=== PATIENT | male | born 1995 | race African-American/Black ===

== ENCOUNTER 2021-02-13 23:15 | Inpatient (IN) | payer MEDICARE, MEDICAID ==
--- NOTE | 2021-02-13 23:24 | EDM.PDOC ---
<Juan A Encarnacion - Last Filed: 02/14/21 01:13> ED HPI GENERAL MEDICAL PROBLEM - General Chief Complaint: Abdominal Pain Stated Complaint: MEDICAL VIA [place] Time Seen by Provider: 02/13/21 23:16 Source of Information: Reports: Patient, EMS History Limitations: Reports: No Limitations - History of Present Illness INITIAL COMMENTS - FREE TEXT/NARRATIVE: Ibrahima is a 26-year-old male presenting to the ED via [facility] for evaluation of worsening right lower quadrant abdominal pain, nausea and vomiting, diminished appetite, and now left-sided low back pain. Patient states that his symptoms started about 5 days ago. He denies any fever or chills. The pain is worse with movement. He states he has not had much to eat over the last several days. The pain is been continuing to increase in all radiates through to the back. Right Abdomen Pain Score (Numeric/FACES): 6 - Related Data Allergies Allergy/AdvReac Type Severity Reaction Status Date / Time No Known Allergies Allergy Verified 02/13/21 23:38 Home Meds: Home Meds Aspirin [Ivett Chewable] 81 mg PO DAILY 02/13/21 [History] ED ROS GENERAL - Review of Systems Review Of Systems: See Below Constitutional: Reports: Decreased Appetite HEENT: Reports: No Symptoms Respiratory: Reports: No Symptoms Cardiovascular: Reports: No Symptoms Endocrine: Reports: No Symptoms GI/Abdominal: Reports: Abdominal Pain (Right lower quadrant pain), Decreased Appetite, Nausea, Vomiting. Denies: Constipation, Diarrhea : Reports: No Symptoms Musculoskeletal: Reports: Back Pain (Right lower back pain) Skin: Reports: No Symptoms Neurological: Reports: No Symptoms Psychiatric: Reports: No Symptoms Hematologic/Lymphatic: Reports: No Symptoms Immunologic: Reports: No Symptoms ED EXAM, GI/ABD - Physical Exam Exam: See Below Exam Limited By: No Limitations General Appearance: Alert, Anxious, Mild Distress Eyes: Bilateral: EOMI Throat/Mouth: Normal Inspection, Normal Oropharynx, Normal Voice, No Airway Compromise Head: Atraumatic, Normocephalic Neck: Normal Inspection, Supple. No: Lymphadenopathy (R), Lymphadenopathy (L) Respiratory/Chest: No Respiratory Distress, Lungs Clear, Normal Breath Sounds, No Accessory Muscle Use. No: Crackles, Rales, Rhonchi, Wheezing Cardiovascular: Normal Peripheral Pulses, Regular Rate, Rhythm, No Murmur GI/Abdominal Exam: Soft, Guarding, Rebound, Tender (Right lower quadrant abdominal pain), Abnormal Bowel Sounds (Diminished bowel sounds) Back Exam: Normal Inspection Extremities: Normal Inspection, Normal Range of Motion, No Pedal Edema, Normal Capillary Refill Neurological: Alert, Oriented, Normal Cognition, No Motor/Sensory Deficits Psychiatric: Normal Affect, Normal Mood Skin Exam: Warm, Dry Course - Radiology Interpretation Free Text/Narrative:: I reviewed the images of the CT of the abdomen and pelvis without contrast as well as the report. The report is as follows: FINDINGS: Lower chest: Unremarkable. Liver: Diffusely decreased attenuation of the liver is compatible with significant fatty infiltration. Within this limitation, no focal lesions. Gallbladder and bile ducts: Distended gallbladder. No radiopaque stones or gallbladder wall thickening. Pancreas: Unremarkable. No mass or inflammation. Spleen: Unremarkable. Splenule in the hilum. Adrenal glands: Unremarkable. No nodules. Kidneys: Excreted contrast in the renal calices from prior contrast administration. No hydronephrosis. GI tract: Unremarkable. Normal in caliber. No sign of mass or inflammation. Normal appendix. Vasculature: Unremarkable. Mesenteric arteries are patent. Lymph nodes: No lymphadenopathy. Omentum/Peritoneum/Abdominal Wall: Unremarkable. No sign of mass or infiltration. No free air or significant free fluid. Pelvis: Unremarkable. Bones: Unremarkable for age. IMPRESSION: No significant CT abnormality or findings to explain the cause of the patient`s symptoms. Please note that all CT scans at this facility use dose modulation, iterative reconstruction, and/or weight-based dosing when appropriate to reduce radiation dose to as low as reasonably achievable. - Re-Assessments/Exams Free Text/Narrative Re-Assessment/Exam: 02/14/21 00:31 I reviewed the patient's labs showing a leukocyte count of 9.3 with a normal differential, hemoglobin of 17.6 and a platelet count of 290,000. The patient has a comprehensive metabolic panel significant for sodium 132, potassium 4.1, chloride 93, bicarbonate 26, BUN of 13 with a creatinine 1.1 and a glucose of 327. I did add on a serum ketone and venous blood gas to assess for possible DKA. The patient has significant elevation of his AST at 216, ALT at 335 and alkaline phosphatase at 132. The C-reactive protein is mildly elevated 0.58 and lipase is normal at 126. Patient is negative for Covid, RSV, and influenza. The CT of the abdomen pelvis with contrast had to be aborted because the patient reacted to the IV contrast and started to vomit repeatedly. After his nausea was improved we did a noncontrast CT of the abdomen pelvis which failed to demonstrate any focal abnormalities despite the patient having what appears to be an acute abdomen on exam. 02/14/21 01:13 the patient is ketone positive and his serum and his venous blood gas shows a pH of 7.37, PCO2 venous of 42.6, PO2 venous of 33.0, and a bicar bonate of 24.1. We initiated insulin therapy with 10 units of regular insulin IV. I also initiated the general medicine order set for diabetic ketoacidosis and IV glucose management. I discussed the case with Dr. Lerner as there is no order to send the patient and he will see the patient in the daytime when there are some discharges and beds available. In the meantime, we will continue to manage the patient in the ED with IV hydration, oral hydration, regular labs and glucose management. Departure - Departure Disposition: Admitted As Inpatient 65 Clinical Impression: New onset type 2 diabetes mellitus Diabetic ketoacidosis Qualifiers: Diabetes mellitus type: type 2 Diabetes mellitus complication detail: without coma Qualified Code(s): E11.10 - Type 2 diabetes mellitus with ketoacidosis without coma - Discharge Information Referrals: PCP,None [Primary Care Provider] - Forms: ED Department Discharge <OfficerJim - Last Filed: 02/14/21 08:48> Course - Vital Signs Last Recorded V/S: Last Vital Signs Temp 98.1 F 02/13/21 23:23 Pulse 75 02/14/21 06:00 Resp 16 02/14/21 06:00 BP 122/67 02/14/21 06:00 Pulse Ox 96 02/14/21 06:00 - Orders/Labs/Meds Orders: Active Orders 24 hr Category Date Time Status Diabetes Education [RC] Click to Edit Care 02/14/21 00:51 Active Notify Provider [RC] PRN Care 02/14/21 01:07 Active Vital Signs [RC] Q1H Care 02/14/21 00:51 Active BASIC METABOLIC PANEL,BMP [CHEM] Q4H Lab 02/14/21 09:00 Ordered BASIC METABOLIC PANEL,BMP [CHEM] Q4H Lab 02/14/21 13:00 Ordered BASIC METABOLIC PANEL,BMP [CHEM] Q4H Lab 02/14/21 17:00 Ordered BASIC METABOLIC PANEL,BMP [CHEM] Q4H Lab 02/14/21 21:00 Ordered MAGNESIUM [CHEM] Q6 Lab 02/14/21 13:00 Ordered MAGNESIUM [CHEM] Q6H Lab 02/14/21 19:00 Ordered PHOSPHORUS [CHEM] Q6H Lab 02/14/21 13:00 Ordered PHOSPHORUS [CHEM] Q6H Lab 02/14/21 19:00 Ordered POTASSIUM,K [CHEM] Q2H Lab 02/14/21 11:00 Ordered POTASSIUM,K [CHEM] Q2H Lab 02/14/21 15:00 Ordered POTASSIUM,K [CHEM] Q2H Lab 02/14/21 19:00 Ordered POTASSIUM,K [CHEM] Q2H Lab 02/14/21 23:00 Ordered Dextrose 50% in Water Med 02/14/21 00:49 Active 50 ml IVPUSH ASDIRECTED PRN Dextrose 50% in Water Med 02/14/21 00:51 Active 50 ml IVPUSH ONETIME PRN Glucagon,Human Recombinant [GlucaGen] Med 02/14/21 00:49 Active 1 mg IM ASDIRECTED PRN Insulin Regular in 0.9 % NACL [Myxredlin in NS 100 UNIT Med 02/14/21 01:15 Active /100 ML] 100 ml IV ASDIRECTED Sodium Chloride 0.9% [Normal Saline] 1,000 ml Med 02/14/21 01:00 Active IV ASDIRECTED Sodium Chloride 0.9% [Normal Saline] 1,000 ml Med 02/14/21 03:15 Active IV ASDIRECTED Isolation [COMM] Stat Ot 02/13/21 23:17 Ordered Medication Orders Dextrose/Water (50% Dextrose In Water 50 Ml Syringe) 50 ml IVPUSH ASDIRECTED PRN PRN Reason: Hypoglycemia Dextrose/Water (50% Dextrose In Water 50 Ml Syringe) 50 ml IVPUSH ONETIME PRN PRN Reason: Blood Glucose Glucagon (Glucagon,Human Recombinant 1 Mg Vial) 1 mg IM ASDIRECTED PRN PRN Reason: Hypoglycemia Sodium Chloride (Normal Saline) 1,000 mls @ 999 mls/hr IV ASDIRECTED MARNI Last Admin: 02/14/21 01:30 Dose: 999 mls/hr Documented by: SCOTTIE Insulin Regular in 0.9 % NACL (Myxredlin In Ns 100 Unit/100 Ml) 100 mls @ 9.979 mls/hr IV ASDIRECTED MARNI; Protocol Last Admin: 02/14/21 07:06 Dose: 0.03 units/kg/hr, 3 mls/hr Documented by: MADI Cosigned by: RICH Infusion: 02/14/21 07:06 Dose: 0.04 units/kg/hr, 4 mls/hr Documented by: MADI Cosigned by: RICH Infusion: 02/14/21 05:08 Dose: 0.04 units/kg/hr, 4 mls/hr Documented by: SCOTTIE Cosigned by: BOLIVAR Admin: 02/14/21 03:18 Dose: 0.07 units/kg/hr, 7 mls/hr Documented by: SCOTTIE Cosigned by: BOLIVAR Sodium Chloride (Normal Saline) 1,000 mls @ 250 mls/hr IV ASDIRECTED MARNI Last Admin: 02/14/21 07:22 Dose: 250 mls/hr Documented by: Infusion: 02/14/21 07:20 Dose: 250 mls/hr Documented by: Admin: 02/14/21 03:20 Dose: 250 mls/hr Documented by: SCOTTIE Labs: Laboratory Tests 02/13/21 02/13/21 02/13/21 Range/Units 23:26 23:26 23:26 WBC 9.3 (4.5-11.0) K/uL RBC 5.97 H (4.30-5.90) M/uL Hgb 17.6 H (12.0-15.0) g/dL Hct 46.9 (40.0-54.0) % MCV 79 L (80-98) fL MCH 30 (27-31) pg MCHC 38 H (32-36) % Plt Count 290 (150-400) K/uL Neut % (Auto) 60.1 (36-66) % Lymph % (Auto) 26.5 (24-44) % [place] % (Auto) 9.7 H (2-6) % Eos % (Auto) 2.8 (2-4) % Baso % (Auto) 0.9 (0-1) % ABG Hemoglobin (13.5-18.0) g/dL ABG Oxyhemoglobin % ABG Carboxyhemoglobin (0.0-1.6) % ABG Methemoglobin % VBG pH (7.350-7.450) VBG pCO2 mm/Hg VBG pO2 mm/Hg VBG HCO3 mmol/L VBG Total CO2 mmol/L VBG O2 Saturation VBG O2 Content %vol VBG Base Excess mm/L O2 Delivery Device Sodium 132 L (140-148) mmol/L Potassium 4.1 (3.6-5.2) mmol/L Chloride 93 L (100-108) mmol/L Carbon Dioxide 24 (21-32) mmol/L Anion Gap 19.1 H (5.0-14.0) mmol/L BUN 13 (7-18) mg/dL Creatinine 1.1 (0.8-1.3) mg/dL Est Cr Clr Drug Dosing 114.00 mL/min Estimated GFR (MDRD) > 60 (>60) Glucose 327 H (74-106) mg/dL POC Glucose (74-106) mg/dL Lactic Acid 1.1 (0.4-2.0) mmol/L Calcium 9.8 (8.5-10.1) mg/dL Phosphorus (2.5-4.9) mg/dL Magnesium (1.8-2.4) mg/dL Total Bilirubin 2.0 H (0.2-1.0) mg/dL AST 216 H (15-37) U/L ALT 335 H (12-78) U/L Alkaline Phosphatase 132 H (46-116) U/L C-Reactive Protein 0.58 H (0.0-0.3) mg/dL Total Protein 8.0 (6.4-8.2) g/dL Albumin 4.5 (3.4-5.0) g/dL Globulin 3.5 (2.3-3.5) g/dL Albumin/Globulin Ratio 1.3 (1.2-2.2) Lipase 126 (73-393) U/L Urine Color (YELLOW) Urine Appearance (CLEAR) Urine pH (5.0-8.0) Ur Specific [place] (1.008-1.030) Urine Protein (NEGATIVE) mg/dL Urine Glucose (UA) (NEGATIVE) mg/dL Urine Ketones (NEGATIVE) mg/dL Urine Occult Blood (NEGATIVE) Urine Nitrite (NEGATIVE) Urine Bilirubin (NEGATIVE) Urine Urobilinogen (0.2-1.0) EU/dL Ur Leukocyte Esterase (NEGATIVE) Urine RBC (0-5) Urine WBC (0-5) Ur Epithelial Cells Amorphous Sediment Urine Bacteria Urine Mucus Urine Other Ketones (NEGATIVE) Influenza Type A RNA (NEGATIVE) RSV RNA (INAAT) (NEGATIVE) Influenza Type B RNA (NEGATIVE) SARS-CoV-2 RNA (BREE) (NEGATIVE) 02/13/21 02/14/21 02/14/21 Range/Units 23:31 00:31 00:38 WBC (4.5-11.0) K/uL RBC (4.30-5.90) M/uL Hgb (12.0-15.0) g/dL Hct (40.0-54.0) % MCV (80-98) fL MCH (27-31) pg MCHC (32-36) % Plt Count (150-400) K/uL Neut % (Auto) (36-66) % Lymph % (Auto) (24-44) % [place] % (Auto) (2-6) % Eos % (Auto) (2-4) % Baso % (Auto) (0-1) % ABG Hemoglobin 17.4 (13.5-18.0) g/dL ABG Oxyhemoglobin 62.2 % ABG Carboxyhemoglobin 3.5 H (0.0-1.6) % ABG Methemoglobin 1.1 % VBG pH 7.372 (7.350-7.450) VBG pCO2 42.6 mm/Hg VBG pO2 33.0 mm/Hg VBG HCO3 24.1 mmol/L VBG Total CO2 20.7 mmol/L VBG O2 Saturation 65.2 VBG O2 Content 15.2 %vol VBG Base Excess -0.8 mm/L O2 Delivery Device Room air Sodium (140-148) mmol/L Potassium (3.6-5.2) mmol/L Chloride (100-108) mmol/L Carbon Dioxide (21-32) mmol/L Anion Gap (5.0-14.0) mmol/L BUN (7-18) mg/dL Creatinine (0.8-1.3) mg/dL Est Cr Clr Drug Dosing mL/min Estimated GFR (MDRD) (>60) Glucose (74-106) mg/dL POC Glucose (74-106) mg/dL Lactic Acid (0.4-2.0) mmol/L Calcium (8.5-10.1) mg/dL Phosphorus (2.5-4.9) mg/dL Magnesium (1.8-2.4) mg/dL Total Bilirubin (0.2-1.0) mg/dL AST (15-37) U/L ALT (12-78) U/L Alkaline Phosphatase (46-116) U/L C-Reactive Protein (0.0-0.3) mg/dL Total Protein (6.4-8.2) g/dL Albumin (3.4-5.0) g/dL Globulin (2.3-3.5) g/dL Albumin/Globulin Ratio (1.2-2.2) Lipase (73-393) U/L Urine Color [place] A (YELLOW) Urine Appearance Slightly cloudy A (CLEAR) Urine pH 5.5 (5.0-8.0) Ur Specific [place] >= 1.030 (1.008-1.030) Urine Protein >=300 H (NEGATIVE) mg/dL Urine Glucose (UA) 500 H (NEGATIVE) mg/dL Urine Ketones 40 H (NEGATIVE) mg/dL Urine Occult Blood Trace-intact H (NEGATIVE) Urine Nitrite Negative (NEGATIVE) Urine Bilirubin Moderate H (NEGATIVE) Urine Urobilinogen 0.2 (0.2-1.0) EU/dL Ur Leukocyte Esterase Negative (NEGATIVE) Urine RBC 0-5 (0-5) Urine WBC 0-5 (0-5) Ur Epithelial Cells Few Amorphous Sediment Moderate Urine Bacteria Few Urine Mucus Few Urine Other Ketones (NEGATIVE) Influenza Type A RNA Negative (NEGATIVE) RSV RNA (INAAT) Negative (NEGATIVE) Influenza Type B RNA Negative (NEGATIVE) SARS-CoV-2 RNA (BREE) Negative (NEGATIVE) 02/14/21 02/14/21 02/14/21 Range/Units 00:38 00:40 01:57 WBC (4.5-11.0) K/uL RBC (4.30-5.90) M/uL Hgb (12.0-15.0) g/dL Hct (40.0-54.0) % MCV (80-98) fL MCH (27-31) pg MCHC (32-36) % Plt Count (150-400) K/uL Neut % (Auto) (36-66) % Lymph % (Auto) (24-44) % [place] % (Auto) (2-6) % Eos % (Auto) (2-4) % Baso % (Auto) (0-1) % ABG Hemoglobin (13.5-18.0) g/dL ABG Oxyhemoglobin % ABG Carboxyhemoglobin (0.0-1.6) % ABG Methemoglobin % VBG pH (7.350-7.450) VBG pCO2 mm/Hg VBG pO2 mm/Hg VBG HCO3 mmol/L VBG Total CO2 mmol/L VBG O2 Saturation VBG O2 Content %vol VBG Base Excess mm/L O2 Delivery Device Sodium 130 L (140-148) mmol/L Potassium 4.4 (3.6-5.2) mmol/L Chloride 92 L (100-108) mmol/L Carbon Dioxide 25 (21-32) mmol/L Anion Gap 17.4 H (5.0-14.0) mmol/L BUN 12 (7-18) mg/dL Creatinine 1.1 (0.8-1.3) mg/dL Est Cr Clr Drug Dosing 114.00 mL/min Estimated GFR (MDRD) > 60 (>60) Glucose 333 H (74-106) mg/dL POC Glucose 320 H (74-106) mg/dL Lactic Acid (0.4-2.0) mmol/L Calcium 9.3 (8.5-10.1) mg/dL Phosphorus 4.6 (2.5-4.9) mg/dL Magnesium 1.9 (1.8-2.4) mg/dL Total Bilirubin (0.2-1.0) mg/dL AST (15-37) U/L ALT (12-78) U/L Alkaline Phosphatase (46-116) U/L C-Reactive Protein (0.0-0.3) mg/dL Total Protein (6.4-8.2) g/dL Albumin (3.4-5.0) g/dL Globulin (2.3-3.5) g/dL Albumin/Globulin Ratio (1.2-2.2) Lipase (73-393) U/L Urine Color (YELLOW) Urine Appearance (CLEAR) Urine pH (5.0-8.0) Ur Specific [place] (1.008-1.030) Urine Protein (NEGATIVE) mg/dL Urine Glucose (UA) (NEGATIVE) mg/dL Urine Ketones (NEGATIVE) mg/dL Urine Occult Blood (NEGATIVE) Urine Nitrite (NEGATIVE) Urine Bilirubin (NEGATIVE) Urine Urobilinogen (0.2-1.0) EU/dL Ur Leukocyte Esterase (NEGATIVE) Urine RBC (0-5) Urine WBC (0-5) Ur Epithelial Cells Amorphous Sediment Urine Bacteria Urine Mucus Urine Other Ketones Small H (NEGATIVE) Influenza Type A RNA (NEGATIVE) RSV RNA (INAAT) (NEGATIVE) Influenza Type B RNA (NEGATIVE) SARS-CoV-2 RNA (BREE) (NEGATIVE) 02/14/21 02/14/21 02/14/21 Range/Units 02:58 03:01 04:00 WBC (4.5-11.0) K/uL RBC (4.30-5.90) M/uL Hgb (12.0-15.0) g/dL Hct (40.0-54.0) % MCV (80-98) fL MCH (27-31) pg MCHC (32-36) % Plt Count (150-400) K/uL Neut % (Auto) (36-66) % Lymph % (Auto) (24-44) % [place] % (Auto) (2-6) % Eos % (Auto) (2-4) % Baso % (Auto) (0-1) % ABG Hemoglobin (13.5-18.0) g/dL ABG Oxyhemoglobin % ABG Carboxyhemoglobin (0.0-1.6) % ABG Methemoglobin % VBG pH (7.350-7.450) VBG pCO2 mm/Hg VBG pO2 mm/Hg VBG HCO3 mmol/L VBG Total CO2 mmol/L VBG O2 Saturation VBG O2 Content %vol VBG Base Excess mm/L O2 Delivery Device Sodium (140-148) mmol/L Potassium 3.8 (3.6-5.2) mmol/L Chloride (100-108) mmol/L Carbon Dioxide (21-32) mmol/L Anion Gap (5.0-14.0) mmol/L BUN (7-18) mg/dL Creatinine (0.8-1.3) mg/dL Est Cr Clr Drug Dosing mL/min Estimated GFR (MDRD) (>60) Glucose (74-106) mg/dL POC Glucose 325 H 320 H (74-106) mg/dL Lactic Acid (0.4-2.0) mmol/L Calcium (8.5-10.1) mg/dL Phosphorus (2.5-4.9) mg/dL Magnesium (1.8-2.4) mg/dL Total Bilirubin (0.2-1.0) mg/dL AST (15-37) U/L ALT (12-78) U/L Alkaline Phosphatase (46-116) U/L C-Reactive Protein (0.0-0.3) mg/dL Total Protein (6.4-8.2) g/dL Albumin (3.4-5.0) g/dL Globulin (2.3-3.5) g/dL Albumin/Globulin Ratio (1.2-2.2) Lipase (73-393) U/L Urine Color (YELLOW) Urine Appearance (CLEAR) Urine pH (5.0-8.0) Ur Specific [place] (1.008-1.030) Urine Protein (NEGATIVE) mg/dL Urine Glucose (UA) (NEGATIVE) mg/dL Urine Ketones (NEGATIVE) mg/dL Urine Occult Blood (NEGATIVE) Urine Nitrite (NEGATIVE) Urine Bilirubin (NEGATIVE) Urine Urobilinogen (0.2-1.0) EU/dL Ur Leukocyte Esterase (NEGATIVE) Urine RBC (0-5) Urine WBC (0-5) Ur Epithelial Cells Amorphous Sediment Urine Bacteria Urine Mucus Urine Other Ketones (NEGATIVE) Influenza Type A RNA (NEGATIVE) RSV RNA (INAAT) (NEGATIVE) Influenza Type B RNA (NEGATIVE) SARS-CoV-2 RNA (BREE) (NEGATIVE) 02/14/21 02/14/21 02/14/21 Range/Units 05:08 05:10 06:11 WBC (4.5-11.0) K/uL RBC (4.30-5.90) M/uL Hgb (12.0-15.0) g/dL Hct (40.0-54.0) % MCV (80-98) fL MCH (27-31) pg MCHC (32-36) % Plt Count (150-400) K/uL Neut % (Auto) (36-66) % Lymph % (Auto) (24-44) % [place] % (Auto) (2-6) % Eos % (Auto) (2-4) % Baso % (Auto) (0-1) % ABG Hemoglobin (13.5-18.0) g/dL ABG Oxyhemoglobin % ABG Carboxyhemoglobin (0.0-1.6) % ABG Methemoglobin % VBG pH (7.350-7.450) VBG pCO2 mm/Hg VBG pO2 mm/Hg VBG HCO3 mmol/L VBG Total CO2 mmol/L VBG O2 Saturation VBG O2 Content %vol VBG Base Excess mm/L O2 Delivery Device Sodium 136 L (140-148) mmol/L Potassium 3.9 (3.6-5.2) mmol/L Chloride 98 L (100-108) mmol/L Carbon Dioxide 26 (21-32) mmol/L Anion Gap 15.9 H (5.0-14.0) mmol/L BUN 12 (7-18) mg/dL Creatinine 1.0 (0.8-1.3) mg/dL Est Cr Clr Drug Dosing 125.40 mL/min Estimated GFR (MDRD) > 60 (>60) Glucose 249 H (74-106) mg/dL POC Glucose 239 H 232 H (74-106) mg/dL Lactic Acid (0.4-2.0) mmol/L Calcium 8.9 (8.5-10.1) mg/dL Phosphorus (2.5-4.9) mg/dL Magnesium (1.8-2.4) mg/dL Total Bilirubin (0.2-1.0) mg/dL AST (15-37) U/L ALT (12-78) U/L Alkaline Phosphatase (46-116) U/L C-Reactive Protein (0.0-0.3) mg/dL Total Protein (6.4-8.2) g/dL Albumin (3.4-5.0) g/dL Globulin (2.3-3.5) g/dL Albumin/Globulin Ratio (1.2-2.2) Lipase (73-393) U/L Urine Color (YELLOW) Urine Appearance (CLEAR) Urine pH (5.0-8.0) Ur Specific [place] (1.008-1.030) Urine Protein (NEGATIVE) mg/dL Urine Glucose (UA) (NEGATIVE) mg/dL Urine Ketones (NEGATIVE) mg/dL Urine Occult Blood (NEGATIVE) Urine Nitrite (NEGATIVE) Urine Bilirubin (NEGATIVE) Urine Urobilinogen (0.2-1.0) EU/dL Ur Leukocyte Esterase (NEGATIVE) Urine RBC (0-5) Urine WBC (0-5) Ur Epithelial Cells Amorphous Sediment Urine Bacteria Urine Mucus Urine Other Ketones (NEGATIVE) Influenza Type A RNA (NEGATIVE) RSV RNA (INAAT) (NEGATIVE) Influenza Type B RNA (NEGATIVE) SARS-CoV-2 RNA (BREE) (NEGATIVE) 02/14/21 02/14/21 02/14/21 Range/Units 07:01 07:05 07:58 WBC (4.5-11.0) K/uL RBC (4.30-5.90) M/uL Hgb (12.0-15.0) g/dL Hct (40.0-54.0) % MCV (80-98) fL MCH (27-31) pg MCHC (32-36) % Plt Count (150-400) K/uL Neut % (Auto) (36-66) % Lymph % (Auto) (24-44) % [place] % (Auto) (2-6) % Eos % (Auto) (2-4) % Baso % (Auto) (0-1) % ABG Hemoglobin (13.5-18.0) g/dL ABG Oxyhemoglobin % ABG Carboxyhemoglobin (0.0-1.6) % ABG Methemoglobin % VBG pH (7.350-7.450) VBG pCO2 mm/Hg VBG pO2 mm/Hg VBG HCO3 mmol/L VBG Total CO2 mmol/L VBG O2 Saturation VBG O2 Content %vol VBG Base Excess mm/L O2 Delivery Device Sodium (140-148) mmol/L Potassium 3.9 (3.6-5.2) mmol/L Chloride (100-108) mmol/L Carbon Dioxide (21-32) mmol/L Anion Gap (5.0-14.0) mmol/L BUN (7-18) mg/dL Creatinine (0.8-1.3) mg/dL Est Cr Clr Drug Dosing mL/min Estimated GFR (MDRD) (>60) Glucose (74-106) mg/dL POC Glucose 198 H 205 H (74-106) mg/dL Lactic Acid (0.4-2.0) mmol/L Calcium (8.5-10.1) mg/dL Phosphorus 3.9 (2.5-4.9) mg/dL Magnesium 2.1 (1.8-2.4) mg/dL Total Bilirubin (0.2-1.0) mg/dL AST (15-37) U/L ALT (12-78) U/L Alkaline Phosphatase (46-116) U/L C-Reactive Protein (0.0-0.3) mg/dL Total Protein (6.4-8.2) g/dL Albumin (3.4-5.0) g/dL Globulin (2.3-3.5) g/dL Albumin/Globulin Ratio (1.2-2.2) Lipase (73-393) U/L Urine Color (YELLOW) Urine Appearance (CLEAR) Urine pH (5.0-8.0) Ur Specific [place] (1.008-1.030) Urine Protein (NEGATIVE) mg/dL Urine Glucose (UA) (NEGATIVE) mg/dL Urine Ketones (NEGATIVE) mg/dL Urine Occult Blood (NEGATIVE) Urine Nitrite (NEGATIVE) Urine Bilirubin (NEGATIVE) Urine Urobilinogen (0.2-1.0) EU/dL Ur Leukocyte Esterase (NEGATIVE) Urine RBC (0-5) Urine WBC (0-5) Ur Epithelial Cells Amorphous Sediment Urine Bacteria Urine Mucus Urine Other Ketones (NEGATIVE) Influenza Type A RNA (NEGATIVE) RSV RNA (INAAT) (NEGATIVE) Influenza Type B RNA (NEGATIVE) SARS-CoV-2 RNA (BREE) (NEGATIVE) Meds: Medications Generic Name Dose Route Start Last Admin Trade Name Freq PRN Reason Stop Dose Admin Dextrose/Water 50 ml 02/14/21 00:49 50% Dextrose In Water 50 Ml Syringe IVPUSH ASDIRECTED PRN Hypoglycemia Dextrose/Water 50 ml 02/14/21 00:51 50% Dextrose In Water 50 Ml Syringe IVPUSH ONETIME PRN Blood Glucose Glucagon 1 mg 02/14/21 00:49 Glucagon,Human Recombinant 1 Mg Vial IM ASDIRECTED PRN Hypoglycemia Sodium Chloride 1,000 mls @ 999 mls/hr 02/14/21 01:00 02/14/21 01:30 Normal Saline IV 999 mls/hr ASDIRECTED MARNI Administration Insulin Regular in 0.9 % NACL 100 mls @ 9.979 mls/hr 02/14/21 01:15 02/14/21 07:06 Myxredlin In Ns 100 Unit/100 Ml IV 0.03 units/kg/hr ASDIRECTED MARNI 3 mls/hr Administration Protocol 0.1 UNITS/KG/HR Sodium Chloride 1,000 mls @ 250 mls/hr 02/14/21 03:15 02/14/21 07:22 Normal Saline IV 250 mls/hr ASDIRECTED MARNI Administration Discontinued Medications Generic Name Dose Route Start Last Admin Trade Name Ellie PRN Reason Stop Dose Admin Sodium Chloride 85 mls @ 4 mls/sec 02/13/21 23:39 02/13/21 23:47 Normal Saline IV 02/13/21 23:40 4 mls/sec ASDIRECTED STA Administration Insulin Human Regular 10 unit 02/14/21 00:49 02/14/21 01:01 Insulin Regular, Human 100 Units/Ml 3 Ml Vial IVPUSH 02/14/21 00:50 10 unit ONETIME ONE Administration Iopamidol 150 ml 02/13/21 23:39 02/13/21 23:47 Iopamidol 612 Mg/Ml 150 Ml Bottle IV 02/13/21 23:40 150 ml . DIRECTED STA Administration Metoclopramide HCl 10 mg 02/14/21 01:22 02/14/21 01:40 Metoclopramide 10 Mg/2 Ml Sdv IVPUSH 02/14/21 01:23 10 mg ONETIME ONE Administration - Re-Assessments/Exams Free Text/Narrative Re-Assessment/Exam: 02/14/21 08:47 Took over care this morning 7 AM discussed case hospitalist that 830 this morning he agreed to take over care will continue management for DKA plan is to do hospital admission this morning Departure - Departure Time of Disposition: 08:48 Sepsis Event Note (ED) - Focused Exam Vital Signs: Vital Signs Temp Pulse Resp BP Pulse Ox 02/14/21 06:00 75 16 122/67 96 02/14/21 05:00 79 16 113/70 02/14/21 04:00 83 16 103/64 02/14/21 03:20 79 16 117/58 L 97 02/14/21 02:49 79 16 132/69 97 02/14/21 01:49 83 133/91 H 02/14/21 01:19 79 16 135/86 97 02/14/21 00:49 68 16 127/71 98 02/13/21 23:23 98.1 F 91 16 139/84 95 - Assessment/Plan Plan: Assessment Acuity = acute Site and laterality = new onset DKA Etiology = unknown Manifestations = hyperglycemia Location of injury = Home Plan Admission by hospitalist service This note was dictated using [employer] voice recognition software please call with any questions on syntax or grammar.
[2021-02-13] MEDS ORDERED: Iopamidol 612 MG/ML 150 ML Bottle IV STA (23:39)
[2021-02-14 00:10] LABS: CORONAVIRUS COVID-19 NAA NEGATIVE (NEGATIVE)
--- NOTE | 2021-02-14 00:27 | CRLCT ---
For Patients: As a result of the Century Cures Act, medical imaging exams and procedure reports are released immediately into your electronic medical record. You may view this report before your referring provider. If you have questions, please contact your health care provider. INDICATION: Right lower quadrant pain for 5 days. TECHNIQUE: CT abdomen and pelvis acquired witH IV contrast. COMPARISON: None. FINDINGS: Lower chest: Unremarkable. Liver: Diffusely decreased attenuation of the liver is compatible with significant fatty infiltration. Within this limitation, no focal lesions. Gallbladder and bile ducts: Distended gallbladder. No radiopaque stones or gallbladder wall thickening. Pancreas: Unremarkable. No mass or inflammation. Spleen: Unremarkable. Splenule in the hilum. Adrenal glands: Unremarkable. No nodules. Kidneys: Excreted contrast in the renal calices from prior contrast administration. No hydronephrosis. GI tract: Unremarkable. Normal in caliber. No sign of mass or inflammation. Normal appendix. Vasculature: Unremarkable. Mesenteric arteries are patent. Lymph nodes: No lymphadenopathy. Omentum/Peritoneum/Abdominal Wall: Unremarkable. No sign of mass or infiltration. No free air or significant free fluid. Pelvis: Unremarkable. Bones: Unremarkable for age. IMPRESSION: No significant CT abnormality or findings to explain the cause of the patient`s symptoms. Please note that all CT scans at this facility use dose modulation, iterative reconstruction, and/or weight-based dosing when appropriate to reduce radiation dose to as low as reasonably achievable. Dictated by Juan Dickson MD @ 02/14/2021 12:26:17 AM (Electronically Signed) JASMINA
[2021-02-14] MEDS ORDERED: Insulin Regular, Human 100 Units/ML 3 ML Vial IVPUSH ONE (00:49)
[2021-02-14] MEDS ORDERED: Glucagon,Human Recombinant 1 MG Vial IM PRN ×2 (00:49→12:25)
[2021-02-14] MEDS ORDERED: 50% Dextrose in Water 50 ML Syringe IVPUSH PRN ×3 (00:49→12:25)
[2021-02-14] MEDS ORDERED: Sodium Chloride 0.9% 1,000 ML IV SCH (01:00)
[2021-02-14] MEDS ORDERED: Metoclopramide 10 MG/2 ML SDV IVPUSH ONE (01:22)
[2021-02-14] MEDS: Insulin Regular in 0.9 % NACL 100 ML IV SCH ×4 (03:18→11:02)
[2021-02-14] MEDS: Sodium Chloride 0.9% 1,000 ML IV SCH ×3 (03:20→11:32)
[2021-02-14] MEDS ORDERED: Acetaminophen 325 MG Tab PO ONE (10:16)
--- NOTE | 2021-02-14 12:26 | PCM.HP.2 ---
H&P History of Present Illness - General Date of Service: 02/14/21 Admit Problem/Dx: Admission Diagnosis/Problem Admission Diagnosis/Problem Ketoacidosis Source of Information: Patient, Provider, RN Notes Reviewed History Limitations: Reports: No Limitations - History of Present Illness Initial Comments - Free Text/Narative: Mr. Dye is a 26-year-old gentleman who was admitted through the emergency department with hyperglycemia, nausea, and abdominal pain, secondary to diabetic ketoacidosis. He has no prior history of diabetes mellitus and is unaware of his family history as he was adopted. He is noted symptoms of polydipsia and polyuria over the past 2 months. Over the past few days he had developed abdominal pain associated with nausea. He was evaluated in the emergency department and found to have ketoacidosis. No beds were available at this facility for admission or beds at other facilities for transfer so he was boarded in the emergency department. He was started on IV insulin per protocol as well as IV fluids and electrolyte management per ketoacidosis protocol. He has done well during his time in the emergency department, glucose levels are u nder better control and his ketoacidosis has resolved. He will be admitted for ongoing management of his uncontrolled diabetes, including initiation of insulin therapy and diabetes education. Right Abdomen Pain Score (Numeric/FACES): 6 - Related Data Allergies/Adverse Reactions: Allergies Allergy/AdvReac Type Severity Reaction Status Date / Time No Known Allergies Allergy Verified 02/13/21 23:38 Home Medications: Home Meds Aspirin [Ivett Chewable] 81 mg PO DAILY 02/13/21 [History] Past Medical History Cardiovascular History: Reports: Angina, High Cholesterol Musculoskeletal History: Reports: Fracture Psychiatric History: Reports: ADHD, Autism, Depression Other Psychiatric History: FAS - Infectious Disease History Infectious Disease History: Reports: Chicken Pox Social & Family History - Tobacco Use Tobacco Use Status *Q: Current Every Day Tobacco User Years of Tobacco use: 13 Packs/Tins Daily: 0.5 - Caffeine Use Caffeine Use: Reports: Energy Drinks - Recreational Drug Use Recreational Drug Use: Yes Drug Use in Last 12 Months: Yes Recreational Drug Type: Reports: Marijuana/Hashish Recreational Drug Use Frequency: Daily H&P Review of Systems - Review of Systems: Review Of Systems: See Below General: Reports: No Symptoms HEENT: Reports: No Symptoms Pulmonary: Reports: No Symptoms Cardiovascular: Reports: No Symptoms Gastrointestinal: Reports: No Symptoms Genitourinary: Reports: No Symptoms Musculoskeletal: Reports: No Symptoms Skin: Reports: No Symptoms Psychiatric: Reports: No Symptoms Neurological: Reports: No Symptoms Hematologic/Lymphatic: Reports: No Symptoms Immunologic: Reports: No Symptoms Exam - Exam Exam: See Below - Vital Signs Vital Signs: Last Vital Signs Temp 98.1 F 02/13/21 23:23 Pulse 70 02/14/21 11:38 Resp 16 02/14/21 06:00 BP 123/84 02/14/21 11:38 Pulse Ox 96 02/14/21 06:00 Weight: 220 lb - Exam General: Alert, Oriented, Cooperative, Mild Distress HEENT: Conjunctiva Clear, Hearing Intact, Mucosa Moist & [place], Normal Nasal Sep jyotsna, Posterior Pharynx Clear, Pupils Equal Neck: Supple, Trachea Midline, +2 Carotid Pulse wo Bruit Lungs: Clear to Auscultation, Normal Respiratory Effort Cardiovascular: Regular Rate, Regular Rhythm, Normal S1, Normal S2. No: Systolic Murmur, Diastolic Murmur GI/Abdominal Exam: Soft, Non-Tender, No Organomegaly, No Distention Back Exam: Normal Inspection, Full Range of Motion Extremities: Non-Tender, No Pedal Edema Skin: Warm, Dry, Intact Neurological: Cranial Nerves Intact, Strength Equal Bilateral, Normal Speech, Normal Tone, Sensation Intact. No: Focal Deficit Neuro Extensive - Mental Status: Alert, Oriented x3, Normal Mood/Affect, Normal Cognition, Memory Intact - Patient Data Lab Results Last 24 hrs: Laboratory Results - last 24 hr 02/13/21 02/13/21 02/13/21 Range/Units 23:26 23:26 23:26 WBC 9.3 (4.5-11.0) K/uL RBC 5.97 H (4.30-5.90) M/uL Hgb 17.6 H (12.0-15.0) g/dL Hct 46.9 (40.0-54.0) % MCV 79 L (80-98) fL MCH 30 (27-31) pg MCHC 38 H (32-36) % Plt Count 290 (150-400) K/uL Neut % (Auto) 60.1 (36-66) % Lymph % (Auto) 26.5 (24-44) % [place] % (Auto) 9.7 H (2-6) % Eos % (Auto) 2.8 (2-4) % Baso % (Auto) 0.9 (0-1) % ABG Hemoglobin (13.5-18.0) g/dL ABG Oxyhemoglobin % ABG Carboxyhemoglobin (0.0-1.6) % ABG Methemoglobin % VBG pH (7.350-7.450) VBG pCO2 mm/Hg VBG pO2 mm/Hg VBG HCO3 mmol/L VBG Total CO2 mmol/L VBG O2 Saturation VBG O2 Content %vol VBG Base Excess mm/L O2 Delivery Device Sodium 132 L (140-148) mmol/L Potassium 4.1 (3.6-5.2) mmol/L Chloride 93 L (100-108) mmol/L Carbon Dioxide 24 (21-32) mmol/L Anion Gap 19.1 H (5.0-14.0) mmol/L BUN 13 (7-18) mg/dL Creatinine 1.1 (0.8-1.3) mg/dL Est Cr Clr Drug Dosing 114.00 mL/min Estimated GFR (MDRD) > 60 (>60) Glucose 327 H (74-106) mg/dL POC Glucose (74-106) mg/dL Lactic Acid 1.1 (0.4-2.0) mmol/L Calcium 9.8 (8.5-10.1) mg/dL Phosphorus (2.5-4.9) mg/dL Magnesium (1.8-2.4) mg/dL Total Bilirubin 2.0 H (0.2-1.0) mg/dL AST 216 H (15-37) U/L ALT 335 H (12-78) U/L Alkaline Phosphatase 132 H (46-116) U/L C-Reactive Protein 0.58 H (0.0-0.3) mg/dL Total Protein 8.0 (6.4-8.2) g/dL Albumin 4.5 (3.4-5.0) g/dL Globulin 3.5 (2.3-3.5) g/dL Albumin/Globulin Ratio 1.3 (1.2-2.2) Lipase 126 (73-393) U/L Urine Color (YELLOW) Urine Appearance (CLEAR) Urine pH (5.0-8.0) Ur Specific [place] (1.008-1.030) Urine Protein (NEGATIVE) mg/dL Urine Glucose (UA) (NEGATIVE) mg/dL Urine Ketones (NEGATIVE) mg/dL Urine Occult Blood (NEGATIVE) Urine Nitrite (NEGATIVE) Urine Bilirubin (NEGATIVE) Urine Urobilinogen (0.2-1.0) EU/dL Ur Leukocyte Esterase (NEGATIVE) Urine RBC (0-5) Urine WBC (0-5) Ur Epithelial Cells Amorphous Sediment Urine Bacteria Urine Mucus Urine Other Ketones (NEGATIVE) Influenza Type A RNA (NEGATIVE) RSV RNA (INAAT) (NEGATIVE) Influenza Type B RNA (NEGATIVE) SARS-CoV-2 RNA (BREE) (NEGATIVE) 02/13/21 02/14/21 02/14/21 Range/Units 23:31 00:31 00:38 WBC (4.5-11.0) K/uL RBC (4.30-5.90) M/uL Hgb (12.0-15.0) g/dL Hct (40.0-54.0) % MCV (80-98) fL MCH (27-31) pg MCHC (32-36) % Plt Count (150-400) K/uL Neut % (Auto) (36-66) % Lymph % (Auto) (24-44) % [place] % (Auto) (2-6) % Eos % (Auto) (2-4) % Baso % (Auto) (0-1) % ABG Hemoglobin 17.4 (13.5-18.0) g/dL ABG Oxyhemoglobin 62.2 % ABG Carboxyhemoglobin 3.5 H (0.0-1.6) % ABG Methemoglobin 1.1 % VBG pH 7.372 (7.350-7.450) VBG pCO2 42.6 mm/Hg VBG pO2 33.0 mm/Hg VBG HCO3 24.1 mmol/L VBG Total CO2 20.7 mmol/L VBG O2 Saturation 65.2 VBG O2 Content 15.2 %vol VBG Base Excess -0.8 mm/L O2 Delivery Device Room air Sodium (140-148) mmol/L Potassium (3.6-5.2) mmol/L Chloride (100-108) mmol/L Carbon Dioxide (21-32) mmol/L Anion Gap (5.0-14.0) mmol/L BUN (7-18) mg/dL Creatinine (0.8-1.3) mg/dL Est Cr Clr Drug Dosing mL/min Estimated GFR (MDRD) (>60) Glucose (74-106) mg/dL POC Glucose (74-106) mg/dL Lactic Acid (0.4-2.0) mmol/L Calcium (8.5-10.1) mg/dL Phosphorus (2.5-4.9) mg/dL Magnesium (1.8-2.4) mg/dL Total Bilirubin (0.2-1.0) mg/dL AST (15-37) U/L ALT (12-78) U/L Alkaline Phosphatase (46-116) U/L C-Reactive Protein (0.0-0.3) mg/dL Total Protein (6.4-8.2) g/dL Albumin (3.4-5.0) g/dL Globulin (2.3-3.5) g/dL Albumin/Globulin Ratio (1.2-2.2) Lipase (73-393) U/L Urine Color [place] A (YELLOW) Urine Appearance Slightly cloudy A (CLEAR) Urine pH 5.5 (5.0-8.0) Ur Specific [place] >= 1.030 (1.008-1.030) Urine Protein >=300 H (NEGATIVE) mg/dL Urine Glucose (UA) 500 H (NEGATIVE) mg/dL Urine Ketones 40 H (NEGATIVE) mg/dL Urine Occult Blood Trace-intact H (NEGATIVE) Urine Nitrite Negative (NEGATIVE) Urine Bilirubin Moderate H (NEGATIVE) Urine Urobilinogen 0.2 (0.2-1.0) EU/dL Ur Leukocyte Esterase Negative (NEGATIVE) Urine RBC 0-5 (0-5) Urine WBC 0-5 (0-5) Ur Epithelial Cells Few Amorphous Sediment Moderate Urine Bacteria Few Urine Mucus Few Urine Other Ketones (NEGATIVE) Influenza Type A RNA Negative (NEGATIVE) RSV RNA (INAAT) Negative (NEGATIVE) Influenza Type B RNA Negative (NEGATIVE) SARS-CoV-2 RNA (BREE) Negative (NEGATIVE) 02/14/21 02/14/21 02/14/21 Range/Units 00:38 00:40 01:57 WBC (4.5-11.0) K/uL RBC (4.30-5.90) M/uL Hgb (12.0-15.0) g/dL Hct (40.0-54.0) % MCV (80-98) fL MCH (27-31) pg MCHC (32-36) % Plt Count (150-400) K/uL Neut % (Auto) (36-66) % Lymph % (Auto) (24-44) % [place] % (Auto) (2-6) % Eos % (Auto) (2-4) % Baso % (Auto) (0-1) % ABG Hemoglobin (13.5-18.0) g/dL ABG Oxyhemoglobin % ABG Carboxyhemoglobin (0.0-1.6) % ABG Methemoglobin % VBG pH (7.350-7.450) VBG pCO2 mm/Hg VBG pO2 mm/Hg VBG HCO3 mmol/L VBG Total CO2 mmol/L VBG O2 Saturation VBG O2 Content %vol VBG Base Excess mm/L O2 Delivery Device Sodium 130 L (140-148) mmol/L Potassium 4.4 (3.6-5.2) mmol/L Chloride 92 L (100-108) mmol/L Carbon Dioxide 25 (21-32) mmol/L Anion Gap 17.4 H (5.0-14.0) mmol/L BUN 12 (7-18) mg/dL Creatinine 1.1 (0.8-1.3) mg/dL Est Cr Clr Drug Dosing 114.00 mL/min Estimated GFR (MDRD) > 60 (>60) Glucose 333 H (74-106) mg/dL POC Glucose 320 H (74-106) mg/dL Lactic Acid (0.4-2.0) mmol/L Calcium 9.3 (8.5-10.1) mg/dL Phosphorus 4.6 (2.5-4.9) mg/dL Magnesium 1.9 (1.8-2.4) mg/dL Total Bilirubin (0.2-1.0) mg/dL AST (15-37) U/L ALT (12-78) U/L Alkaline Phosphatase (46-116) U/L C-Reactive Protein (0.0-0.3) mg/dL Total Protein (6.4-8.2) g/dL Albumin (3.4-5.0) g/dL Globulin (2.3-3.5) g/dL Albumin/Globulin Ratio (1.2-2.2) Lipase (73-393) U/L Urine Color (YELLOW) Urine Appearance (CLEAR) Urine pH (5.0-8.0) Ur Specific [place] (1.008-1.030) Urine Protein (NEGATIVE) mg/dL Urine Glucose (UA) (NEGATIVE) mg/dL Urine Ketones (NEGATIVE) mg/dL Urine Occult Blood (NEGATIVE) Urine Nitrite (NEGATIVE) Urine Bilirubin (NEGATIVE) Urine Urobilinogen (0.2-1.0) EU/dL Ur Leukocyte Esterase (NEGATIVE) Urine RBC (0-5) Urine WBC (0-5) Ur Epithelial Cells Amorphous Sediment Urine Bacteria Urine Mucus Urine Other Ketones Small H (NEGATIVE) Influenza Type A RNA (NEGATIVE) RSV RNA (INAAT) (NEGATIVE) Influenza Type B RNA (NEGATIVE) SARS-CoV-2 RNA (BREE) (NEGATIVE) 02/14/21 02/14/21 02/14/21 Range/Units 02:58 03:01 04:00 WBC (4.5-11.0) K/uL RBC (4.30-5.90) M/uL Hgb (12.0-15.0) g/dL Hct (40.0-54.0) % MCV (80-98) fL MCH (27-31) pg MCHC (32-36) % Plt Count (150-400) K/uL Neut % (Auto) (36-66) % Lymph % (Auto) (24-44) % [place] % (Auto) (2-6) % Eos % (Auto) (2-4) % Baso % (Auto) (0-1) % ABG Hemoglobin (13.5-18.0) g/dL ABG Oxyhemoglobin % ABG Carboxyhemoglobin (0.0-1.6) % ABG Methemoglobin % VBG pH (7.350-7.450) VBG pCO2 mm/Hg VBG pO2 mm/Hg VBG HCO3 mmol/L VBG Total CO2 mmol/L VBG O2 Saturation VBG O2 Content %vol VBG Base Excess mm/L O2 Delivery Device Sodium (140-148) mmol/L Potassium 3.8 (3.6-5.2) mmol/L Chloride (100-108) mmol/L Carbon Dioxide (21-32) mmol/L Anion Gap (5.0-14.0) mmol/L BUN (7-18) mg/dL Creatinine (0.8-1.3) mg/dL Est Cr Clr Drug Dosing mL/min Estimated GFR (MDRD) (>60) Glucose (74-106) mg/dL POC Glucose 325 H 320 H (74-106) mg/dL Lactic Acid (0.4-2.0) mmol/L Calcium (8.5-10.1) mg/dL Phosphorus (2.5-4.9) mg/dL Magnesium (1.8-2.4) mg/dL Total Bilirubin (0.2-1.0) mg/dL AST (15-37) U/L ALT (12-78) U/L Alkaline Phosphatase (46-116) U/L C-Reactive Protein (0.0-0.3) mg/dL Total Protein (6.4-8.2) g/dL Albumin (3.4-5.0) g/dL Globulin (2.3-3.5) g/dL Albumin/Globulin Ratio (1.2-2.2) Lipase (73-393) U/L Urine Color (YELLOW) Urine Appearance (CLEAR) Urine pH (5.0-8.0) Ur Specific [place] (1.008-1.030) Urine Protein (NEGATIVE) mg/dL Urine Glucose (UA) (NEGATIVE) mg/dL Urine Ketones (NEGATIVE) mg/dL Urine Occult Blood (NEGATIVE) Urine Nitrite (NEGATIVE) Urine Bilirubin (NEGATIVE) Urine Urobilinogen (0.2-1.0) EU/dL Ur Leukocyte Esterase (NEGATIVE) Urine RBC (0-5) Urine WBC (0-5) Ur Epithelial Cells Amorphous Sediment Urine Bacteria Urine Mucus Urine Other Ketones (NEGATIVE) Influenza Type A RNA (NEGATIVE) RSV RNA (INAAT) (NEGATIVE) Influenza Type B RNA (NEGATIVE) SARS-CoV-2 RNA (BREE) (NEGATIVE) 02/14/21 02/14/21 02/14/21 Range/Units 05:08 05:10 06:11 WBC (4.5-11.0) K/uL RBC (4.30-5.90) M/uL Hgb (12.0-15.0) g/dL Hct (40.0-54.0) % MCV (80-98) fL MCH (27-31) pg MCHC (32-36) % Plt Count (150-400) K/uL Neut % (Auto) (36-66) % Lymph % (Auto) (24-44) % [place] % (Auto) (2-6) % Eos % (Auto) (2-4) % Baso % (Auto) (0-1) % ABG Hemoglobin (13.5-18.0) g/dL ABG Oxyhemoglobin % ABG Carboxyhemoglobin (0.0-1.6) % ABG Methemoglobin % VBG pH (7.350-7.450) VBG pCO2 mm/Hg VBG pO2 mm/Hg VBG HCO3 mmol/L VBG Total CO2 mmol/L VBG O2 Saturation VBG O2 Content %vol VBG Base Excess mm/L O2 Delivery Device Sodium 136 L (140-148) mmol/L Potassium 3.9 (3.6-5.2) mmol/L Chloride 98 L (100-108) mmol/L Carbon Dioxide 26 (21-32) mmol/L Anion Gap 15.9 H (5.0-14.0) mmol/L BUN 12 (7-18) mg/dL Creatinine 1.0 (0.8-1.3) mg/dL Est Cr Clr Drug Dosing 125.40 mL/min Estimated GFR (MDRD) > 60 (>60) Glucose 249 H (74-106) mg/dL POC Glucose 239 H 232 H (74-106) mg/dL Lactic Acid (0.4-2.0) mmol/L Calcium 8.9 (8.5-10.1) mg/dL Phosphorus (2.5-4.9) mg/dL Magnesium (1.8-2.4) mg/dL Total Bilirubin (0.2-1.0) mg/dL AST (15-37) U/L ALT (12-78) U/L Alkaline Phosphatase (46-116) U/L C-Reactive Protein (0.0-0.3) mg/dL Total Protein (6.4-8.2) g/dL Albumin (3.4-5.0) g/dL Globulin (2.3-3.5) g/dL Albumin/Globulin Ratio (1.2-2.2) Lipase (73-393) U/L Urine Color (YELLOW) Urine Appearance (CLEAR) Urine pH (5.0-8.0) Ur Specific [place] (1.008-1.030) Urine Protein (NEGATIVE) mg/dL Urine Glucose (UA) (NEGATIVE) mg/dL Urine Ketones (NEGATIVE) mg/dL Urine Occult Blood (NEGATIVE) Urine Nitrite (NEGATIVE) Urine Bilirubin (NEGATIVE) Urine Urobilinogen (0.2-1.0) EU/dL Ur Leukocyte Esterase (NEGATIVE) Urine RBC (0-5) Urine WBC (0-5) Ur Epithelial Cells Amorphous Sediment Urine Bacteria Urine Mucus Urine Other Ketones (NEGATIVE) Influenza Type A RNA (NEGATIVE) RSV RNA (INAAT) (NEGATIVE) Influenza Type B RNA (NEGATIVE) SARS-CoV-2 RNA (BREE) (NEGATIVE) 02/14/21 02/14/21 02/14/21 Range/Units 07:01 07:05 07:58 WBC (4.5-11.0) K/uL RBC (4.30-5.90) M/uL Hgb (12.0-15.0) g/dL Hct (40.0-54.0) % MCV (80-98) fL MCH (27-31) pg MCHC (32-36) % Plt Count (150-400) K/uL Neut % (Auto) (36-66) % Lymph % (Auto) (24-44) % [place] % (Auto) (2-6) % Eos % (Auto) (2-4) % Baso % (Auto) (0-1) % ABG Hemoglobin (13.5-18.0) g/dL ABG Oxyhemoglobin % ABG Carboxyhemoglobin (0.0-1.6) % ABG Methemoglobin % VBG pH (7.350-7.450) VBG pCO2 mm/Hg VBG pO2 mm/Hg VBG HCO3 mmol/L VBG Total CO2 mmol/L VBG O2 Saturation VBG O2 Content %vol VBG Base Excess mm/L O2 Delivery Device Sodium (140-148) mmol/L Potassium 3.9 (3.6-5.2) mmol/L Chloride (100-108) mmol/L Carbon Dioxide (21-32) mmol/L Anion Gap (5.0-14.0) mmol/L BUN (7-18) mg/dL Creatinine (0.8-1.3) mg/dL Est Cr Clr Drug Dosing mL/min Estimated GFR (MDRD) (>60) Glucose (74-106) mg/dL POC Glucose 198 H 205 H (74-106) mg/dL Lactic Acid (0.4-2.0) mmol/L Calcium (8.5-10.1) mg/dL Phosphorus 3.9 (2.5-4.9) mg/dL Magnesium 2.1 (1.8-2.4) mg/dL Total Bilirubin (0.2-1.0) mg/dL AST (15-37) U/L ALT (12-78) U/L Alkaline Phosphatase (46-116) U/L C-Reactive Protein (0.0-0.3) mg/dL Total Protein (6.4-8.2) g/dL Albumin (3.4-5.0) g/dL Globulin (2.3-3.5) g/dL Albumin/Globulin Ratio (1.2-2.2) Lipase (73-393) U/L Urine Color (YELLOW) Urine Appearance (CLEAR) Urine pH (5.0-8.0) Ur Specific [place] (1.008-1.030) Urine Protein (NEGATIVE) mg/dL Urine Glucose (UA) (NEGATIVE) mg/dL Urine Ketones (NEGATIVE) mg/dL Urine Occult Blood (NEGATIVE) Urine Nitrite (NEGATIVE) Urine Bilirubin (NEGATIVE) Urine Urobilinogen (0.2-1.0) EU/dL Ur Leukocyte Esterase (NEGATIVE) Urine RBC (0-5) Urine WBC (0-5) Ur Epithelial Cells Amorphous Sediment Urine Bacteria Urine Mucus Urine Other Ketones (NEGATIVE) Influenza Type A RNA (NEGATIVE) RSV RNA (INAAT) (NEGATIVE) Influenza Type B RNA (NEGATIVE) SARS-CoV-2 RNA (BREE) (NEGATIVE) 02/14/21 02/14/21 02/14/21 Range/Units 08:55 09:00 09:57 WBC (4.5-11.0) K/uL RBC (4.30-5.90) M/uL Hgb (12.0-15.0) g/dL Hct (40.0-54.0) % MCV (80-98) fL MCH (27-31) pg MCHC (32-36) % Plt Count (150-400) K/uL Neut % (Auto) (36-66) % Lymph % (Auto) (24-44) % [place] % (Auto) (2-6) % Eos % (Auto) (2-4) % Baso % (Auto) (0-1) % ABG Hemoglobin (13.5-18.0) g/dL ABG Oxyhemoglobin % ABG Carboxyhemoglobin (0.0-1.6) % ABG Methemoglobin % VBG pH (7.350-7.450) VBG pCO2 mm/Hg VBG pO2 mm/Hg VBG HCO3 mmol/L VBG Total CO2 mmol/L VBG O2 Saturation VBG O2 Content %vol VBG Base Excess mm/L O2 Delivery Device Sodium 137 L (140-148) mmol/L Potassium 3.9 (3.6-5.2) mmol/L Chloride 99 L (100-108) mmol/L Carbon Dioxide 28 (21-32) mmol/L Anion Gap 13.9 (5.0-14.0) mmol/L BUN 11 (7-18) mg/dL Creatinine 1.0 (0.8-1.3) mg/dL Est Cr Clr Drug Dosing 125.40 mL/min Estimated GFR (MDRD) > 60 (>60) Glucose 198 H (74-106) mg/dL POC Glucose 192 H 210 H (74-106) mg/dL Lactic Acid (0.4-2.0) mmol/L Calcium 8.5 (8.5-10.1) mg/dL Phosphorus (2.5-4.9) mg/dL Magnesium (1.8-2.4) mg/dL Total Bilirubin (0.2-1.0) mg/dL AST (15-37) U/L ALT (12-78) U/L Alkaline Phosphatase (46-116) U/L C-Reactive Protein (0.0-0.3) mg/dL Total Protein (6.4-8.2) g/dL Albumin (3.4-5.0) g/dL Globulin (2.3-3.5) g/dL Albumin/Globulin Ratio (1.2-2.2) Lipase (73-393) U/L Urine Color (YELLOW) Urine Appearance (CLEAR) Urine pH (5.0-8.0) Ur Specific [place] (1.008-1.030) Urine Protein (NEGATIVE) mg/dL Urine Glucose (UA) (NEGATIVE) mg/dL Urine Ketones (NEGATIVE) mg/dL Urine Occult Blood (NEGATIVE) Urine Nitrite (NEGATIVE) Urine Bilirubin (NEGATIVE) Urine Urobilinogen (0.2-1.0) EU/dL Ur Leukocyte Esterase (NEGATIVE) Urine RBC (0-5) Urine WBC (0-5) Ur Epithelial Cells Amorphous Sediment Urine Bacteria Urine Mucus Urine Other Ketones (NEGATIVE) Influenza Type A RNA (NEGATIVE) RSV RNA (INAAT) (NEGATIVE) Influenza Type B RNA (NEGATIVE) SARS-CoV-2 RNA (BREE) (NEGATIVE) 02/14/21 02/14/21 02/14/21 Range/Units 10:58 11:02 11:58 WBC (4.5-11.0) K/uL RBC (4.30-5.90) M/uL Hgb (12.0-15.0) g/dL Hct (40.0-54.0) % MCV (80-98) fL MCH (27-31) pg MCHC (32-36) % Plt Count (150-400) K/uL Neut % (Auto) (36-66) % Lymph % (Auto) (24-44) % [place] % (Auto) (2-6) % Eos % (Auto) (2-4) % Baso % (Auto) (0-1) % ABG Hemoglobin (13.5-18.0) g/dL ABG Oxyhemoglobin % ABG Carboxyhemoglobin (0.0-1.6) % ABG Methemoglobin % VBG pH (7.350-7.450) VBG pCO2 mm/Hg VBG pO2 mm/Hg VBG HCO3 mmol/L VBG Total CO2 mmol/L VBG O2 Saturation VBG O2 Content %vol VBG Base Excess mm/L O2 Delivery Device Sodium (140-148) mmol/L Potassium 4.1 (3.6-5.2) mmol/L Chloride (100-108) mmol/L Carbon Dioxide (21-32) mmol/L Anion Gap (5.0-14.0) mmol/L BUN (7-18) mg/dL Creatinine (0.8-1.3) mg/dL Est Cr Clr Drug Dosing mL/min Estimated GFR (MDRD) (>60) Glucose (74-106) mg/dL POC Glucose 181 H 206 H (74-106) mg/dL Lactic Acid (0.4-2.0) mmol/L Calcium (8.5-10.1) mg/dL Phosphorus (2.5-4.9) mg/dL Magnesium (1.8-2.4) mg/dL Total Bilirubin (0.2-1.0) mg/dL AST (15-37) U/L ALT (12-78) U/L Alkaline Phosphatase (46-116) U/L C-Reactive Protein (0.0-0.3) mg/dL Total Protein (6.4-8.2) g/dL Albumin (3.4-5.0) g/dL Globulin (2.3-3.5) g/dL Albumin/Globulin Ratio (1.2-2.2) Lipase (73-393) U/L Urine Color (YELLOW) Urine Appearance (CLEAR) Urine pH (5.0-8.0) Ur Specific [place] (1.008-1.030) Urine Protein (NEGATIVE) mg/dL Urine Glucose (UA) (NEGATIVE) mg/dL Urine Ketones (NEGATIVE) mg/dL Urine Occult Blood (NEGATIVE) Urine Nitrite (NEGATIVE) Urine Bilirubin (NEGATIVE) Urine Urobilinogen (0.2-1.0) EU/dL Ur Leukocyte Esterase (NEGATIVE) Urine RBC (0-5) Urine WBC (0-5) Ur Epithelial Cells Amorphous Sediment Urine Bacteria Urine Mucus Urine Other Ketones (NEGATIVE) Influenza Type A RNA (NEGATIVE) RSV RNA (INAAT) (NEGATIVE) Influenza Type B RNA (NEGATIVE) SARS-CoV-2 RNA (BREE) (NEGATIVE) Result Diagrams: 02/13/21 23:26 02/14/21 11:02 Sepsis Event Note - Evaluation Sepsis Screening Result: No Definite Risk - Focused Exam Vital Signs: Vital Signs Pulse Resp BP Pulse Ox 02/14/21 11:38 70 123/84 02/14/21 10:00 71 137/76 02/14/21 09:00 68 119/63 02/14/21 08:00 74 111/72 02/14/21 06:00 75 16 122/67 96 02/14/21 05:00 79 16 113/70 02/14/21 04:00 83 16 103/64 02/14/21 03:20 79 16 117/58 L 97 02/14/21 02:49 79 16 132/69 97 02/14/21 01:49 83 133/91 H 02/14/21 01:19 79 16 135/86 97 02/14/21 00:49 68 16 127/71 98 *Q Meaningful Use (ADM) - VTE Risk Assess *Q Each Risk Factor Represents 1 Point: Obesity ( BMI > 25 kg/m2) Total Score 1 Point Risk Factors: 1 Each Risk Factor Represents 2 Points: None Total Score 2 Point Risk Factors: 0 Each Risk Factor Represents 3 Points: None Total Score 3 Point Risk Factors: 0 Each Risk Factor Represents 5 Points: None Total Score 5 Point Risk Factors: 0 Venous Thromboembolism Risk Factor Score *Q: 1 Problem List Initiated/Reviewed/Updated: Yes Orders Last 24hrs: Active Orders 24 hr Category Date Time Status Patient Status Manage Transfer [TRANSFER] Routine ADT 02/14/21 12:18 Active Diabetes Education [RC] Click to Edit Care 02/14/21 00:51 Active Notify Provider [RC] PRN Care 02/14/21 01:07 Active Vital Signs [RC] Q1H Care 02/14/21 00:51 Active BASIC METABOLIC PANEL,BMP [CHEM] Q4H Lab 02/14/21 13:00 Ordered BASIC METABOLIC PANEL,BMP [CHEM] Q4H Lab 02/14/21 17:00 Ordered BASIC METABOLIC PANEL,BMP [CHEM] Q4H Lab 02/14/21 21:00 Ordered MAGNESIUM [CHEM] Q6H Lab 02/14/21 13:00 Ordered MAGNESIUM [CHEM] Q6H Lab 02/14/21 19:00 Ordered PHOSPHORUS [CHEM] Q6H Lab 02/14/21 13:00 Ordered PHOSPHORUS [CHEM] Q6H Lab 02/14/21 19:00 Ordered POTASSIUM,K [CHEM] Q2H Lab 02/14/21 15:00 Ordered POTASSIUM,K [CHEM] Q2H Lab 02/14/21 19:00 Ordered POTASSIUM,K [CHEM] Q2H Lab 02/14/21 23:00 Ordered Dextrose 50% in Water Med 02/14/21 00:49 Active 50 ml IVPUSH ASDIRECTED PRN Dextrose 50% in Water Med 02/14/21 12:25 Ordered 50 ml IVPUSH ASDIRECTED PRN Dextrose 50% in Water Med 02/14/21 00:51 Active 50 ml IVPUSH ONETIME PRN Glucagon,Human Recombinant [GlucaGen] Med 02/14/21 00:49 Active 1 mg IM ASDIRECTED PRN Glucagon,Human Recombinant [GlucaGen] Med 02/14/21 12:25 Ordered 1 mg IM ASDIRECTED PRN Insulin Glarg,Human.Rec.Analog [LantUS Solostar] Med 02/14/21 12:30 Ordered 40 units SUBCUT DAILY Insulin Regular in 0.9 % NACL [Myxredlin in NS 100 UNIT Med 02/14/21 01:15 Active /100 ML] 100 ml IV ASDIRECTED Sodium Chloride 0.9% [Normal Saline] 1,000 ml Med 02/14/21 01:00 Active IV ASDIRECTED Sodium Chloride 0.9% [Normal Saline] 1,000 ml Med 02/14/21 03:15 Active IV ASDIRECTED Isolation [COMM] Stat Oth 02/13/21 23:17 Ordered Resuscitation Status Routine Resus Stat 02/14/21 12:20 Ordered Medication Orders Dextrose/Water (50% Dextrose In Water 50 Ml Syringe) 50 ml IVPUSH ASDIRECTED PRN PRN Reason: Hypoglycemia Dextrose/Water (50% Dextrose In Water 50 Ml Syringe) 50 ml IVPUSH ONETIME PRN PRN Reason: Blood Glucose Dextrose/Water (50% Dextrose In Water 50 Ml Syringe) 50 ml IVPUSH ASDIRECTED PRN PRN Reason: Hypoglycemia Glucagon (Glucagon,Human Recombinant 1 Mg Vial) 1 mg IM ASDIRECTED PRN PRN Reason: Hypoglycemia Glucagon (Glucagon,Human Recombinant 1 Mg Vial) 1 mg IM ASDIRECTED PRN PRN Reason: Hypoglycemia Sodium Chloride (Normal Saline) 1,000 mls @ 999 mls/hr IV ASDIRECTED MARNI Last Admin: 02/14/21 01:30 Dose: 999 mls/hr Documented by: SCOTTIE Insulin Regular in 0.9 % NACL (Myxredlin In Ns 100 Unit/100 Ml) 100 mls @ 9.979 mls/hr IV ASDIRECTED MARNI; Protocol Last Admin: 02/14/21 11:02 Dose: 0.03 units/kg/hr, 3 mls/hr Documented by: MADI Cosigned by: [id number] Infusion: 02/14/21 11:02 Dose: 0.03 units/kg/hr, 3 mls/hr Documented by: MADI Cosigned by: RICH Admin: 02/14/21 10:09 Dose: 0.04 units/kg/hr, 4 mls/hr Documented by: AMDI Cosigned by: RICH Infusion: 02/14/21 10:09 Dose: 0.03 units/kg/hr, 3 mls/hr Documented by: MADI Cosigned by: [email or web address] Admin: 02/14/21 07:06 Dose: 0.03 units/kg/hr, 3 mls/hr Documented by: MADI Cosigned by: RICH Infusion: 02/14/21 07:06 Dose: 0.04 units/kg/hr, 4 mls/hr Documented by: MADI Cosigned by: RICH Infusion: 02/14/21 05:08 Dose: 0.04 units/kg/hr, 4 mls/hr Documented by: SCOTTIE Cosigned by: BOLIVAR Admin: 02/14/21 03:18 Dose: 0.07 units/kg/hr, 7 mls/hr Documented by: SCOTTIE Cosigned by: BOLIVAR Sodium Chloride (Normal Saline) 1,000 mls @ 250 mls/hr IV ASDIRECTED [facility] Last Admin: 02/14/21 11:32 Dose: 250 mls/hr Documented by: Infusion: 02/14/21 11:22 Dose: 250 mls/hr Documented by: Admin: 02/14/21 07:22 Dose: 250 mls/hr Documented by: Infusion: 02/14/21 07:20 Dose: 250 mls/hr Documented by: Admin: 02/14/21 03:20 Dose: 250 mls/hr Documented by: SCOTTIE Insulin Glargine (Insulin Glargine,Human Rec. Analog 100 Units/Ml 3 Ml Pen) 40 units SUBCUT DAILY [facility] Assessment/Plan Comment:: ASSESSMENT AND PLAN DIABETIC KETOACIDOSIS-resolved NEW DIAGNOSIS TYPE 1 DIABETES MELLITUS-evaluated and treated in the emergency department for diabetic ketoacidosis, relatively mild. -Start long-acting insulin therapy; Lantus 40 units subcu daily -Low-dose sliding scale Humalog -Diabetes education ELEVATED LIVER STUDIES-AST ALT and bilirubin noted to be elevated on initial labs in the emergency department. He admits to low level of alcohol intake. No prior history of significant liver disease. He is unaware of family history. -Follow-up labs in a.m. -Abdominal ultrasound MAINTENANCE ISSUES -DVT prophylaxis; not indicated -GI prophylaxis; not indicated -Atkinson catheter; not indicated -Nutrition; consistent carbohydrate diet -Nicotine dependence; nicotine patch and nicotine gum. He was counseled and strongly encouraged to quit smoking CODE STATUS-FULL CODE ADMISSION STATUS-patient will be admitted to inpatient status, expect at least a 2 night hospital stay for evaluation and management of problems as outlined above. At the time of this admission I do not reasonably expected evaluation and management of this problem will require more than a 96 hour hospital stay. DISPOSITION-anticipate discharge to home after the hospital stay. PRIMARY CARE PROVIDER-he does not currently have a primary care provider - Mortality Measure Prognosis:: Good
[2021-02-14] MEDS: Insulin Glargine,Human Rec. Analog 100 Units/ML 3 ML Pen SUBCUT SCH (12:51)
[2021-02-14] MEDS ORDERED: Glucose Gel 15 GM in 37.5 GM Tube PO PRN (13:23)
[2021-02-14] MEDS ORDERED: 50% Dextrose in Water 50 ML Syringe IV PRN (13:23)
[2021-02-14] MEDS ORDERED: Acetaminophen 325 MG Tab PO PRN (13:23)
[2021-02-14] MEDS ORDERED: Polyethylene Glycol 3350 Powder 17 GM Packet PO PRN (13:23)
[2021-02-14] MEDS ORDERED: Sodium Chloride 0.9% 10 ML Syringe FLUSH PRN (13:23)
[2021-02-14] MEDS ORDERED: Ondansetron 4 MG/2 ML SDV IV PRN (13:23)
[2021-02-14] MEDS ORDERED: Nicotine Polacrilex 2 MG Gum CHEW PRN (14:44)
[2021-02-14] MEDS: Nicotine 14 MG/24 Hr Patch TRDERM SCH (16:00)
[2021-02-14] MEDS: Insulin Lispro 100 Unit/ML 3 ML KwikPen SUBCUT SCH ×2 (18:38→21:07)
[2021-02-15] MEDS: Insulin Lispro 100 Unit/ML 3 ML KwikPen SUBCUT SCH (08:23)
[2021-02-15] MEDS: Insulin Glargine,Human Rec. Analog 100 Units/ML 3 ML Pen SUBCUT SCH (08:28)
[2021-02-15] MEDS: Nicotine 14 MG/24 Hr Patch TRDERM SCH (08:33)
[2021-02-15] MEDS ORDERED: Aspirin 81 MG Tab.Chew PO SCH (09:00)
--- NOTE | 2021-02-15 09:18 | US ---
Abdomen Comp CLINICAL HISTORY: Elevated bilirubin COMPARISON: CT abdomen 02/14/2021. TECHNIQUE: Real-time images were obtained through the right upper quadrant. FINDINGS: The liver is free of mass or biliary dilatation. Liver is enlarged There is diffuse fatty infiltration. The gallbladder is hydropic measuring over 13 cm in length. There is no wall thickening. The common bile duct measures 7 mm. The pancreas is obscured. The spleen is enlarged at 14 cm in length right kidney measures 14.6 x 5.6 x 4.0 cm. Cortical thickness is 1.6 cm. Left kidney measures 12.7 x 5.8 cm. Cortical thickness is 1.8 cm. Aorta and IVC are moderately obscured due to bowel gas IMPRESSION: Hepatomegaly with diffuse fatty infiltration Hydropic gallbladder and borderline common bile duct dilatation
[2021-02-15 09:37] LABS: HEMOGLOBIN A1C 9.8 % (4.5-6.2)
--- NOTE | 2021-02-15 11:49 | PCM.DCSUM1 ---
Discharge Summary - Hospital Course Brief History: Healthy male with history of mild obesity who presented with abdominal pain, nausea and vomiting. He was admitted for management of new onset diabetes mellitus with mild diabetic ketoacidosis. Diagnosis: Stroke: No - Discharge Data Discharge Date: 02/15/21 Discharge Disposition: Home, Self-Care 01 Condition: Good - Referral to Home Health Primary Care Physician: PCP None - Discharge Diagnosis/Problem(s) (1) Diabetic ketoacidosis SNOMED Code(s): 955558601, 850037459 ICD Code: E11.10 - TYPE 2 DIABETES MELLITUS WITH KETOACIDOSIS WITHOUT COMA Status: Acute Qualifiers: Diabetes mellitus type: type 2 Diabetes mellitus complication detail: without coma Qualified Code(s): E11.10 - Type 2 diabetes mellitus with ketoacidosis without coma (2) New onset type 2 diabetes mellitus SNOMED Code(s): 76159530 ICD Code: E11.9 - TYPE 2 DIABETES MELLITUS WITHOUT COMPLICATIONS Status: Acute - Patient Summary/Data Hospital Course: Kingsley presented to the emergency room with abdominal pain, nausea and vomiting. Work-up in the emergency room revealed evidence for mild diabetic ketoacidosis as well as new onset of diabetes. He received IV insulin overnight in the emergency room. By the morning after admission his ketoacidosis had resolved. A bed was available for admission at that time and he was admitted for management and education regarding new onset diabetes. He was started on subcutaneous insulin with a combination of long-acting and sliding scale coverage. He received diabetic education. By the day after admission his blood sugars have improved a fair amount. He is feeling well. He is tolerating a regular diet. He feels like he has received adequate education to get started with managing his diabetes at home. He has fairly extensive printed education as well. He has been stable and doing well after the transition to subcutaneous insulin and is interested in going home. I think he is stable and safe for outpatient management at this time. The plan is for him to have a combination of long-acting insulin with Lantus as well as a mealtime insulin and sliding scale while he is at home though we will skip the sliding scale when he is active at work unless his blood sugars are quite high. He does have early follow-up with diabetic education and will be establishing primary care. His hemoglobin A1c was 9.8 and I think that with some diet and exercise that he may be able to get off the insulin and manage this with oral medications. - Patient Instructions Diet: Diabetic Diet Activity: As Tolerated Driving: May Drive Today Showering/Bathing: May Shower Other/Special Instructions: 1. You were in the hospital for evaluation and management of new onset diabetes complicated by mild diabetic ketoacidosis. Your blood sugars have been improving with IV insulin and hydration. Based on the severity of your diabetes at the time of presentation I do recommend subcutaneous insulin therapy after hospital discharge. Your dosing will be outlined below. 2. Start taking a combination of long and short acting insulin to manage your diabetes. Take Lantus 40 units once daily in the morning. Take Lispro (Humalog) 1 unit per carb choice (about 4-5 units per meal) plus a sliding scale based on your pre-meal blood sugar. Do not take your short acting insulin if your blood sugar is <100. If your morning blood sugar is <100 you should cut down on your long acting insulin by 3 units. 3. Please check your blood sugars before each meal and at bedtime. Please record these numbers and bring them to your follow up appointments. 4. Sliding scale insulin instructions - you should take the sliding scale in addition to your planned mealtime insulin based on carbohydrate choices. If blood glucose is: --<150 = no insulin. --150 - 199 = 1 unit. --200 - 249 = 2 units. --250 - 299 = 3 units. --300 - 349 = 4 units. --350 - 400 = 5 units. -->400 = call MD for instructions - Discharge Plan *PRESCRIPTION DRUG MONITORING PROGRAM REVIEWED*: Not Applicable *COPY OF PRESCRIPTION DRUG MONITORING REPORT IN PATIENT ELVIN: Not Applicable Prescriptions/Med Rec: Insulin Lispro [Humalog] 0 unit SUBCUT QIDACANDBED #3 pen Insulin Glarg,Human.Rec.Analog [Lantus Solostar] 40 units SUBCUT DAILY #3 pen Home Medications: Home Meds Aspirin [Ivett Chewable Aspirin] 81 mg PO DAILY 02/13/21 [History] Insulin Glarg,Human.Rec.Analog [Lantus Solostar] 40 units SUBCUT DAILY #3 pen 02/15/21 [Rx] Insulin Lispro [Humalog] 0 unit SUBCUT QIDACANDBED #3 pen 02/15/21 [Rx] Oxygen Therapy Mode: Room Air Patient Handouts: Type 2 Diabetes Mellitus, Diagnosis, Adult, Type 2 Diabetes Mellitus, Self-Care, Adult, Blood Glucose Monitoring, Adult, Diabetes Mellitus and Exercise Referrals: Sneha Hollingsworth [Registered Dietitian] - 02/21/21 10:00 am (Please arrive 15 minutes early to register for your appointment.) Elmo Granados [employer]END[employer] [Nurse Practitioner] - (follow up in 1-2 weeks - follow up hospital stay for new onset diabetes. ) - Discharge Summary/Plan Comment DC Time >30 min.: Yes Total # of Minutes for Discharge Time: 40 -extensive counseling about new onset diabetes as well as coordinating outpatient follow-up and diabetic education - Patient Data Vitals - Most Recent: Last Vital Signs Temp 36.4 C 02/15/21 08:00 Pulse 77 02/15/21 08:00 Resp 18 02/15/21 08:00 BP 125/69 02/15/21 08:00 Pulse Ox 97 02/15/21 08:00 Weight - Most Recent: 110.677 kg I&O - Last 24 hours: Intake & Output 02/14/21 02/15/21 02/15/21 22:59 06:59 14:59 Intake Total 1200 Output Total 1224 6476 300 Balance -25 -0728 -300 Lab Results - Last 24 hrs: Laboratory Results - last 24 hr 02/14/21 02/14/21 02/14/21 Range/Units 11:58 16:59 18:32 Sodium 135 L (140-148) mmol/L Potassium 3.7 (3.6-5.2) mmol/L Chloride 100 (100-108) mmol/L Carbon Dioxide 23 (21-32) mmol/L Anion Gap 15.7 H (5.0-14.0) mmol/L BUN 9 (7-18) mg/dL Creatinine 0.8 (0.8-1.3) mg/dL Est Cr Clr Drug Dosing 161.26 mL/min Estimated GFR (MDRD) > 60 (>60) Glucose 236 H (74-106) mg/dL POC Glucose 206 H 229 H (74-106) mg/dL Hemoglobin A1c (4.5-6.2) % Calcium 8.7 (8.5-10.1) mg/dL Total Bilirubin (0.2-1.0) mg/dL AST (15-37) U/L ALT (12-78) U/L Alkaline Phosphatase (46-116) U/L Total Protein (6.4-8.2) g/dL Albumin (3.4-5.0) g/dL Globulin (2.3-3.5) g/dL Albumin/Globulin Ratio (1.2-2.2) 02/14/21 02/15/21 02/15/21 Range/Units 21:06 04:34 04:34 Sodium 138 L (140-148) mmol/L Potassium 3.5 L (3.6-5.2) mmol/L Chloride 103 (100-108) mmol/L Carbon Dioxide 24 (21-32) mmol/L Anion Gap 14.5 H (5.0-14.0) mmol/L BUN 8 (7-18) mg/dL Creatinine 0.8 (0.8-1.3) mg/dL Est Cr Clr Drug Dosing 161.26 mL/min Estimated GFR (MDRD) > 60 (>60) Glucose 234 H (74-106) mg/dL POC Glucose 349 H (74-106) mg/dL Hemoglobin A1c 9.8 H (4.5-6.2) % Calcium 8.5 (8.5-10.1) mg/dL Total Bilirubin 1.5 H (0.2-1.0) mg/dL AST 231 H (15-37) U/L ALT 338 H (12-78) U/L Alkaline Phosphatase 103 (46-116) U/L Total Protein 6.4 (6.4-8.2) g/dL Albumin 3.5 (3.4-5.0) g/dL Globulin 2.9 (2.3-3.5) g/dL Albumin/Globulin Ratio 1.2 (1.2-2.2) 02/15/21 Range/Units 08:18 Sodium (140-148) mmol/L Potassium (3.6-5.2) mmol/L Chloride (100-108) mmol/L Carbon Dioxide (21-32) mmol/L Anion Gap (5.0-14.0) mmol/L BUN (7-18) mg/dL Creatinine (0.8-1.3) mg/dL Est Cr Clr Drug Dosing mL/min Estimated GFR (MDRD) (>60) Glucose (74-106) mg/dL POC Glucose 216 H (74-106) mg/dL Hemoglobin A1c (4.5-6.2) % Calcium (8.5-10.1) mg/dL Total Bilirubin (0.2-1.0) mg/dL AST (15-37) U/L ALT (12-78) U/L Alkaline Phosphatase (46-116) U/L Total Protein (6.4-8.2) g/dL Albumin (3.4-5.0) g/dL Globulin (2.3-3.5) g/dL Albumin/Globulin Ratio (1.2-2.2) Med Orders - Current: Current Medications Acetaminophen (Acetaminophen 325 Mg Tab) 650 mg PO Q4H PRN PRN Reason: Pain (Mild 1-3)/fever Aspirin (Aspirin 81 Mg Tab.Chew) 81 mg PO DAILY [facility] Last Admin: 02/15/21 08:33 Dose: 81 mg Documented by: Dextrose (Glucose Gel 15 Gm In 37.5 Gm Tube) 15 gm PO ONETIME PRN PRN Reason: Hypoglycemia Dextrose/Water (50% Dextrose In Water 50 Ml Syringe) 50 ml IV ONETIME PRN PRN Reason: Hypoglycemia Glucagon (Glucagon,Human Recombinant 1 Mg Vial) 1 mg IM ASDIRECTED PRN PRN Reason: Hypoglycemia Insulin Glargine (Insulin Glargine,Human Rec. Analog 100 Units/Ml 3 Ml Pen) 40 units SUBCUT DAILY [facility] Last Admin: 02/15/21 08:28 Dose: 40 units Documented by: Insulin Human Lispro (Insulin Lispro 100 Unit/Ml 3 Ml Kwikpen) 0 unit SUBCUT QIDACANDBED [facility]; Protocol Last Admin: 02/15/21 08:23 Dose: 2 units Documented by: Nicotine (Nicotine 14 Mg/24 Hr Patch) 14 mg TRDERM DAILY [facility] Last Admin: 02/15/21 08:33 Dose: 14 mg Documented by: Nicotine Polacrilex (Nicotine Polacrilex 2 Mg Gum) 2 mg CHEW Q1H PRN PRN Reason: Other Ondansetron HCl (Ondansetron 4 Mg/2 Ml Sdv) 4 mg IV Q4H PRN PRN Reason: Nausea/Vomiting Polyethylene Glycol (Polyethylene Glycol 3350 Powder 17 Gm Packet) 17 gm PO DAILY PRN PRN Reason: Constipation Sodium Chloride (Sodium Chloride 0.9% 10 Ml Syringe) 10 ml FLUSH ASDIRECTED PRN PRN Reason: Keep Vein Open Discontinued Medications Acetaminophen (Acetaminophen 325 Mg Tab) 650 mg PO NOW ONE Stop: 02/14/21 10:17 Last Admin: 02/14/21 10:25 Dose: 650 mg Documented by: Dextrose/Water (50% Dextrose In Water 50 Ml Syringe) 50 ml IVPUSH ASDIRECTED PRN PRN Reason: Hypoglycemia Dextrose/Water (50% Dextrose In Water 50 Ml Syringe) 50 ml IVPUSH ONETIME PRN PRN Reason: Blood Glucose Dextrose/Water (50% Dextrose In Water 50 Ml Syringe) 50 ml IVPUSH ASDIRECTED PRN PRN Reason: Hypoglycemia Glucagon (Glucagon,Human Recombinant 1 Mg Vial) 1 mg IM ASDIRECTED PRN PRN Reason: Hypoglycemia Sodium Chloride (Normal Saline) 85 mls @ 4 mls/sec IV ASDIRECTED STA Stop: 02/13/21 23:40 Last Admin: 02/13/21 23:47 Dose: 4 mls/sec Documented by: Sodium Chloride (Normal Saline) 1,000 mls @ 999 mls/hr IV ASDIRECTED [facility] Last Admin: 02/14/21 01:30 Dose: 999 mls/hr Documented by: Insulin Regular in 0.9 % NACL (Myxredlin In Ns 100 Unit/100 Ml) 100 mls @ 9.979 mls/hr IV ASDIRECTED [facility]; Protocol Last Infusion: 02/14/21 07:06 Dose: Infused Documented by: Sodium Chloride (Normal Saline) 1,000 mls @ 250 mls/hr IV ASDIRECTED [facility] Last Admin: 02/14/21 11:32 Dose: 250 mls/hr Documented by: Insulin Human Regular (Insulin Regular, Human 100 Units/Ml 3 Ml Vial) 10 unit IVPUSH ONETIME ONE Stop: 02/14/21 00:50 Last Admin: 02/14/21 01:01 Dose: 10 unit Documented by: Iopamidol (Iopamidol 612 Mg/Ml 150 Ml Bottle) 150 ml IV . DIRECTED STA Stop: 02/13/21 23:40 Last Admin: 02/13/21 23:47 Dose: 150 ml Documented by: Metoclopramide HCl (Metoclopramide 10 Mg/2 Ml Sdv) 10 mg IVPUSH ONETIME ONE Stop: 02/14/21 01:23 Last Admin: 02/14/21 01:40 Dose: 10 mg Documented by: *Q Meaningful Use (DIS) - VTE *Q VTE Pharmacological Contraindications *Q: Not Candidate LT Anticoag
== END 2021-02-15 12:30 | disposition home or self-care (01) | DRG 638 ==
LOC: JP.ED 23:15 → JP.ICU 02-14 12:18
PROVIDERS: ADMIT Hospitalist; ATTEND Internal Medicine
DX: E11.10 Type 2 diabetes mellitus with ketoacidosis without coma (principal); F84.0 Autistic disorder; E78.5 Hyperlipidemia, unspecified; F90.9 Attention-deficit hyperactivity disorder, unspecified type; F17.210 Nicotine dependence, cigarettes, uncomplicated; Z79.82 Long term (current) use of aspirin; E66.9 Obesity, unspecified; Z79.4 Long term (current) use of insulin; Z68.37 Body mass index [BMI] 37.0-37.9, adult; Z87.81 Personal history of (healed) traumatic fracture; Z20.822 Contact with and (suspected) exposure to COVID-19
CPT/HCPCS: 0241U; 36415; 74177; 76700; 80048; 80053; 81001; 82009; 82803; 82947; 83036; 83605; 83690; 83735; 84100; 84132; 85025; 86140; 96374; 99285; A9270-GY; J1815; J1815-GY; J2765; J7030; Q9967

== ENCOUNTER 2021-02-17 18:15 | Emergency (ER) | payer MEDICARE, MEDICAID | END 2021-02-17 18:57 | disposition left against medical advice (07) | LOC: JP.ED 18:15 | DX: Z53.21 Procedure and treatment not carried out due to patient leaving prior to being seen by health care provider (principal) ==

== ENCOUNTER 2021-04-20 11:05 | Emergency (ER) | payer MEDICARE, MEDICAID ==
[2021-04-20] MEDS ORDERED: Fluconazole 150 MG Tab PO ONE (11:58)
== END 2021-04-20 12:22 | disposition home or self-care (01) ==
LOC: JP.ED 11:05
DX: B37.49 Other urogenital candidiasis (principal); E78.00 Pure hypercholesterolemia, unspecified; E11.9 Type 2 diabetes mellitus without complications; Z79.82 Long term (current) use of aspirin; Z79.4 Long term (current) use of insulin; Z79.899 Other long term (current) drug therapy
CPT/HCPCS: 81001; 99282; 99283; A9270-GY